=== PATIENT | male | born 1960 | race Caucasian/White ===

== ENCOUNTER 2022-05-25 19:04 | Emergency (ER) | payer MEDICARE ==
[2022-05-26] MEDS ORDERED: Rivaroxaban 15 MG Tab PO STA (02:10)
[2022-05-26] MEDS ORDERED: Rivaroxaban 15 MG Tab PO SCH (17:00)
== END 2022-05-26 02:30 | disposition home or self-care (01) ==
LOC: JD.ED 19:04
DX: I82.412 Acute embolism and thrombosis of left femoral vein (principal); I82.4Z2 Acute embolism and thrombosis of unspecified deep veins of left distal lower extremity; I82.432 Acute embolism and thrombosis of left popliteal vein; I82.442 Acute embolism and thrombosis of left tibial vein; F15.10 Other stimulant abuse, uncomplicated; F12.90 Cannabis use, unspecified, uncomplicated; I25.10 Atherosclerotic heart disease of native coronary artery without angina pectoris; E78.00 Pure hypercholesterolemia, unspecified; I10 Essential (primary) hypertension; F17.210 Nicotine dependence, cigarettes, uncomplicated; I44.7 Left bundle-branch block, unspecified; Z88.0 Allergy status to penicillin; Z79.01 Long term (current) use of anticoagulants; Z79.899 Other long term (current) drug therapy
CPT/HCPCS: 36415; 85610; 93005; 93971; 99284; A9270